=== PATIENT | male | born 1990 | race Caucasian/White ===

== ENCOUNTER 2018-01-23 05:21 | Emergency (ER) | payer OTHER ==
--- NOTE | 2018-01-23 05:52 | ED ---
Chest Pain HPI - General Chief Complaint: Chest Pain Stated Complaint: SOB/Chest Pain-Transfer from [facility] Time Seen by Provider: 01/23/18 05:24 Source: patient Mode of arrival: wheelchair Limitations: no limitations - History of Present Illness Initial Comments: Patient is a 27-year-old male who presents to the emergency department today via private vehicle from an outside hospital for evaluation of right-sided chest pain and concern for possible pulmonary embolism. Patient reports that on Wednesday evening he noticed some severe stabbing pain in his right lower lung falk and mild shortness of breath. Patient reports he's had a mild cough but that he isn't every day smoker so this is not atypical for him. He denies any fevers, chills, nausea or vomiting. Patient reports that the pain was sudden and intense onset, sharp and stabbing, worse with inspiration. Pain is on the right anterior lateral and posterior ribs. She reports it never experienced any pain like this in the past. He has no personal or family history of DVT or PE in the past. He has no recent long travel, immobilization or surgeries. He has no known cancers. He has no risk factors for DVT or PE. Patient was evaluated an outside hospital where labs revealed an elevated white blood cell count with a leukocytosis of 18 left shift, in addition he was noted to have a d-dimer which was twice their normal limit and a chest x-ray suggestive of right-sided pleural effusion with possible infiltrate versus infarct. The outside hospital did not have CT capabilities and recommended he be transferred here for CT imaging. She was treated with morphine at the outside hospital with significant improvement in his discomfort. - Related Data Previous Rx's Medication Instructions Recorded Azithromycin 250 mg PO DAILY 3 Days #4 tab 01/23/18 Allergies Allergy/AdvReac Type Severity Reaction Status Date / Time No Known Allergies Allergy Verified 01/23/18 05:28 Review of Systems ROS Statement: Those systems with pertinent positive or pertinent negative responses have been documented in the HPI. ROS Other: All systems not noted in ROS Statement are negative. EKG Findings - EKG Comments: EKG Findings:: EKG was obtained at 5:32 AM, rate is 79, rhythm is sinus, there is a normal axis, there are normal intervals, MT 132, QRS 22, QTc is 410, there are no acute ST elevations or depressions no evidence of acute ischemia or infarction, no evidence of acute right heart strain. Past Medical History Past Medical History: No Reported History History of Any Multi-Drug Resistant Organisms: None Reported Past Surgical History: Orthopedic Surgery Additional Past Surgical History / Comment(s): ACL Right knee, Past Psychological History: No Psychological Hx Reported Smoking Status: Current every day smoker Past Alcohol Use History: Occasional Past Drug Use History: Marijuana General Exam Limitations: no limitations General appearance: alert, anxious Head exam: Present: atraumatic, normocephalic Eye exam: Present: PERRL ENT exam: Present: mucous membranes moist Neck exam: Present: normal inspection, full ROM Respiratory exam: Present: decreased breath sounds, other (Decreased breath sounds and crackles at the right base). Absent: respiratory distress, wheezes Cardiovascular Exam: Present: regular rate, normal rhythm GI/Abdominal exam: Present: soft. Absent: distended Rectal exam: Present: deferred Extremities exam: Present: full ROM Back exam: Present: full ROM Neurological exam: Present: alert, oriented X3 Psychiatric exam: Present: normal affect, normal mood Skin exam: Present: warm, dry Course Vital Signs 01/23/18 01/23/18 05:25 06:35 Temperature 98.4 F 97.6 F Pulse Rate 92 67 Respiratory 18 16 Rate Blood Pressure 135/67 127/68 O2 Sat by Pulse 95 97 Oximetry Chest Pain MDM - Differential Diagnosis Pneumonia - MDM Patient was seen and evaluated, patient care was discussed with the transferring physician prior to transfer Patient history was provided by the patient, significant other and physician from transferring hospital Patient with a sudden onset of right-sided chest pain on Wednesday, pain is been persistent since that time, keeping him awake at night. Repeat labs and a CT pulmonary embolism study was ordered CT reveals right lower lobe pneumonia with pleural effusion NO evidence of pulmonary embolism Results were discussed with patient who expresses relief, I suspect that his pain is secondary to pleurisy due to the infection. Advised the patient will give the first dose of antibiotics here in the emergency department and discharge him home with oral antibiotics. Pain can be treated with anti- inflammatories as needed. Advised patient that if he develops any worsening fever, cough, shortness of breath, nausea or vomiting inability to keep down his antibiotics or any new or concerning symptoms he should return to the emergency department to be reevaluated. Advised the patient that he needs to establish care with a primary care physician for follow-up. I also advised patient that he needs to stop smoking as this is can contribute to his chronic cough and pleurisy. All questions pertaining to care were answered the best of my ability the patient was discharged home in stable condition. Disposition Clinical Impression: Pleurisy, Pneumonia Disposition: HOME SELF-CARE Condition: Good Instructions: Pleurisy (ED), Pneumonia (ED) Prescriptions: Azithromycin 250 mg PO DAILY 3 Days #4 tab Is patient prescribed a controlled substance at d/c from ED?: No Referrals: None,Stated [Primary Care Provider] - 1-2 days Time of Disposition: 06:30
--- NOTE | 2018-01-23 06:07 | CT ---
EXAMINATION TYPE: CT chest angio for PE DATE OF EXAM: 01/23/2018 COMPARISON: None HISTORY: No prior, Chest pain, JANNETH, R/O PE CT DLP: 360.70 mGycm Automated exposure control for dose reduction was used. CONTRAST: CT Chest for pulmonary embolism performed with with IV Contrast, patient injected with 70 mL of Isovu e 370. FINDINGS: There are 3-D post processed images. There is mild subpleural reticular density in the midlung falk. There is some patchy airspace conso lidation at the posterior lung bases. This is more on the right side. There is small right pleural ef fusion. Heart size is normal. Thoracic aorta is intact. There is no evidence of aneurysm or dissection. There is normal contrast op acification of the pulmonary arteries. There are no filling defects. There is no mediastinal adenopat hy. There are no hilar masses. Bony thorax is intact. IMPRESSION: No evidence of pulmonary embolism. Bilateral lower lobe pneumonia and atelectasis that is worse on the right side. Small right pleural e ffusion.
[2018-01-23] MEDS ORDERED: KETOROLAC 30 MG/ML 1 ML VIAL IM STA (06:10)
[2018-01-23] MEDS ORDERED: AZITHROMYCIN 500 MG TAB PO STA (06:15)
[2018-01-23 06:30] LABS: ALT 39 U/L (21-72); AST 26 U/L (17-59); Albumin 4.3 g/dL (3.5-5.0); Alkaline Phosphatase 81 U/L (38-126); Anion Gap 10 mmol/L; Blood Urea Nitrogen 10 mg/dL (9-20); Carbon Dioxide 26 mmol/L (22-30); Chloride 103 mmol/L (98-107); Glucose 89 mg/dL (74-99); Partial Thromboplastin Time 25.1 sec (22.0-30.0); Potassium 4.5 mmol/L (3.5-5.1); Prothrombin Time 9.8 sec (9.0-12.0); Sodium 139 mmol/L (137-145); Total Bilirubin 0.6 mg/dL (0.2-1.3); Total Protein 7.2 g/dL (6.3-8.2)
[2018-01-23 06:36] VITALS: BP 127/68; PULSE 67; RESP 16; TEMP 97.6
== END 2018-01-23 06:49 | disposition home or self-care (01) ==
LOC: EC 05:21
DX: J18.1 Lobar pneumonia, unspecified organism (principal); J90 Pleural effusion, not elsewhere classified; D72.829 Elevated white blood cell count, unspecified; F17.200 Nicotine dependence, unspecified, uncomplicated
CPT/HCPCS: 36415; 93005; 83880; 80053; 84484; 85610; 85730; 71275; 99285; 96372; J1885; Q9967